=== PATIENT | male | born 1965 | race Caucasian/White ===

== ENCOUNTER 2017-09-27 10:04 | Emergency (ER) | payer OTHER ==
[~2017-09-27] VITALS: Ht 188 cm; Wt 96.8 kg
[2017-09-27 10:11] VITALS: Ht 188 cm; Wt 96.8 kg
[2017-09-27 10:44] LABS: CARBON DIOXIDE 30.2 mmol/L (21-32); CHLORIDE SERUM 105 mmol/L (98-107); GLUCOSE SERUM 110 mg/dL (74-106); POTASSIUM SERUM 4.4 mmol/L (3.5-5.1); SODIUM SERUM 139 mmol/L (136-145)
[2017-09-27 10:45] LABS: BASOPHIL % 0.4 % (0-2); CALCIUM 8.9 mg/dL (8.5-10.1); GFR1 > 60 mL/min; PLATELET COUNT 234 x10^3mcL (130-400); RED CELL DISTRIBUTION WIDTH 13.5 % (11.5-14.5)
[2017-09-27 13:09] VITALS: BP 150/85
== END 2017-09-27 13:20 | disposition home or self-care (01) ==
LOC: ED 10:04
PROVIDERS: Emergency Medicine
DX: R13.19 Other dysphagia (principal); Z88.8 Allergy status to other drugs, medicaments and biological substances
CPT/HCPCS: 36415; Q0092; Q9967

== ENCOUNTER 2017-10-18 09:20 | Emergency (ER) | payer OTHER ==
[~2017-10-18] VITALS: Ht 188 cm; Wt 93.0 kg
[2017-10-18 09:24] VITALS: Ht 188 cm; Wt 93.0 kg
[2017-10-18 11:25] VITALS: BP 136/92
== END 2017-10-18 11:25 | disposition home or self-care (01) ==
LOC: ED 09:20
DX: F41.9 Anxiety disorder, unspecified (principal); G47.00 Insomnia, unspecified; Z88.8 Allergy status to other drugs, medicaments and biological substances

== ENCOUNTER 2017-11-19 09:53 | Emergency (ER) | payer OTHER ==
[~2017-11-19] VITALS: Ht 188 cm; Wt 88.0 kg
[2017-11-19 09:55] VITALS: Ht 188 cm; Wt 88.0 kg
[2017-11-19 11:55] VITALS: BP 127/84
== END 2017-11-19 11:56 | disposition home or self-care (01) ==
LOC: ED 09:53
DX: F41.8 Other specified anxiety disorders (principal)

== ENCOUNTER 2017-11-30 06:50 | Emergency (ER) | payer OTHER ==
[~2017-11-30] VITALS: Ht 188 cm; Wt 88.9 kg
[2017-11-30 06:53] VITALS: BP 120/85; Ht 188 cm; Wt 88.9 kg
== END 2017-11-30 07:16 | disposition home or self-care (01) ==
LOC: ED 06:50
DX: J01.90 Acute sinusitis, unspecified (principal); F41.9 Anxiety disorder, unspecified; Z91.041 Radiographic dye allergy status; Z88.8 Allergy status to other drugs, medicaments and biological substances

== ENCOUNTER 2018-01-10 02:14 | Emergency (ER) | payer OTHER ==
[~2018-01-10] VITALS: Ht 188 cm; Wt 88.5 kg
[2018-01-10 02:18] VITALS: Ht 188 cm; Wt 88.5 kg
[2018-01-10 04:30] VITALS: BP 123/90
== END 2018-01-10 04:30 | disposition home or self-care (01) ==
LOC: ED 02:14
DX: K11.7 Disturbances of salivary secretion (principal); T43.215A Adverse effect of selective serotonin and norepinephrine reuptake inhibitors, initial encounter; Y92.89 Other specified places as the place of occurrence of the external cause
CPT/HCPCS: J7512

== ENCOUNTER 2018-02-27 06:45 | Emergency (ER) | payer OTHER ==
[~2018-02-27] VITALS: Ht 188 cm; Wt 90.5 kg
[2018-02-27 06:51] VITALS: Ht 188 cm; Wt 90.5 kg
[2018-02-27 07:18] VITALS: BP 121/93
== END 2018-02-27 07:30 | disposition home or self-care (01) ==
LOC: ED 06:45
DX: H93.A1 Pulsatile tinnitus, right ear (principal); L98.9 Disorder of the skin and subcutaneous tissue, unspecified; F41.9 Anxiety disorder, unspecified; F32.9 Major depressive disorder, single episode, unspecified; Z98.890 Other specified postprocedural states; Z88.8 Allergy status to other drugs, medicaments and biological substances

== ENCOUNTER 2019-08-24 11:24 | Emergency (ER) | payer OTHER ==
[~2019-08-24] VITALS: Ht 188 cm; Wt 96.6 kg
[2019-08-24 11:41] VITALS: Ht 188 cm; Wt 96.6 kg
[2019-08-24 13:24] VITALS: BP 142/90
== END 2019-08-24 13:24 | disposition home or self-care (01) ==
LOC: ED 11:24
DX: S61.102D Unspecified open wound of left thumb with damage to nail, subsequent encounter (principal); L08.9 Local infection of the skin and subcutaneous tissue, unspecified; Z88.8 Allergy status to other drugs, medicaments and biological substances; W26.0XXD Contact with knife, subsequent encounter
CPT/HCPCS: J0696; J1885; J7060

== ENCOUNTER 2019-09-15 07:38 | Emergency (ER) | payer SELFPAY ==
[~2019-09-15] VITALS: Ht 188 cm; Wt 97.5 kg
[2019-09-15 07:47] VITALS: Ht 188 cm; Wt 97.5 kg
[2019-09-15 09:28] VITALS: BP 133/96
== END 2019-09-15 09:28 | disposition home or self-care (01) ==
LOC: ED 07:38
DX: S20.211A Contusion of right front wall of thorax, initial encounter (principal); M25.561 Pain in right knee; Z88.8 Allergy status to other drugs, medicaments and biological substances; X58.XXXA Exposure to other specified factors, initial encounter; Y93.89 Activity, other specified; Y92.89 Other specified places as the place of occurrence of the external cause; Y99.8 Other external cause status
CPT/HCPCS: Q0092